=== PATIENT | female | born 2000 | race Caucasian/White ===

== ENCOUNTER 2020-12-12 18:00 | Emergency (ER) | payer OTHER ==
[~2020-12-12] VITALS: Ht 152.4 cm; Wt 90.4 kg
[2020-12-12 18:00] VITALS: BP 146/70
--- NOTE | 2020-12-12 21:15 | ED.ADGEN ---
Past Medical History Past Medical History: Anxiety, Bipolar, Depression Past Surgical History: Other Additional Past Surgical Histo: SI,SELF HARM Smoking Status: Never Smoker Alcohol Use: None Drug Use: None General Adult EDM: Chief Complaint: SUICDAL IDEATION HPI: HPI: Patient is a 20-year-old female who presents to the emergency room complaining of depression and anxiety. Patient was seen at [facility] earlier today for the same complaints and at that time was discharged home with a safety plan. Patient states that earlier today she went in and they had a social work talk to her which did not help. She states that she has cut herself before but is never attempted suicide. She lives in a residential which she does not like to live in. Patient states that she feels bored. Review of Systems: Review of Systems: Complete ROS is negative unless otherwise documented in HPI Allergies: Allergies: Allergies Coded Allergies Type Severity Reaction Last Updated Verified No Known Drug Allergies 04/14/16 No Physical Exam: PE: General: Awake, alert, NAD. Well Nourished, well hydrated. Cooperative HEENT: Atraumatic, EOMI, PERRL, airway patent, moist oral mucosa Neck: Supple, trachea midline Respiratory: CTA bilaterally, normal effort, no wheezing/crackles CV: RRR, no murmur, cap refill <2 GI: Soft, nondistended, nontender, no masses MSK: No obvious deformities Skin: Warm, dry, intact Neuro: A&O x3, speech NL, sensory and motor grossly intact, no focal deficits Psych: Normal affect, normal mood, not suicidal or homicidal Current Patient Data: Labs: Laboratory Tests Test 12/12/20 18:24 POC Urine HCG, Qualitative Hcg negative (Negative) Vital Signs: Vital Signs Date Time Temp Pulse Resp B/P (MAP) Pulse Ox O2 Delivery O2 Flow Rate FiO2 12/12/20 18:00 99.5 92 16 146/70 (95) 97 Room Air 99.5 EKG: EKG: [] Heart Score: C/O Chest Pain: N/A Risk Factors: Risk Factors: DM, Current or recent (<one month) smoker, HTN, HLP, family history of CAD, obesity. Risk Scores: Score 0 - 3: 2.5% MACE over next 6 weeks - Discharge Home Score 4 - 6: 20.3% MACE over next 6 weeks - Admit for Clinical Observation Score 7 - 10: 72.7% MACE over next 6 weeks - Early Invasive Strategies Radiology/Procedures: Radiology/Procedures: [] Course & Med Decision Making: Course & Med Decision Making Pertinent Labs and Imaging studies reviewed. (See chart for details) Patient is a 20-year-old female who presents to the emergency room complaining of depression, anxiety, stress. Patient had a safety plan put in place prior her residential. Discharge at [facility]. PET team was consulted and came in and talked to the patient and the patient's residential. At this time patient does not appear to be a harm to herself or others. Patient's test results and vitals while in the ED were fully reviewed and discussed with the patient. Patient is stable and at this time does not need admission to the hospital. We have discussed strict return precautions and the importance of following up with their Primary Care Physician. Patient stated understanding and was given an opportunity to ask any questions. Patient is in agreement with plan. Luis Antonio Disclaimer: Luis Antonio Disclaimer: This electronic medical record was generated, in whole or in part, using a voice recognition dictation system. Departure Departure Impression: Primary Impression: Depression Additional Impression: Behavior problem Disposition: HOME / SELF CARE / HOMELESS Condition: STABLE Referrals: SHANTI BARBOZA MD (PCP) Patient Instructions: Depression, Adult Problem Qualifiers MERCY DEY MD December 12, 2020 21:15
== END 2020-12-12 22:35 | disposition home or self-care (01) ==
LOC: ER 18:00
DX: F32.9 Major depressive disorder, single episode, unspecified (principal); F41.9 Anxiety disorder, unspecified
CPT/HCPCS: 81025; 99283